=== PATIENT | male | born 1990 | race Caucasian/White ===

== ENCOUNTER → 2021-11-14 | Outpatient (CLI) | payer SELFPAY ==
[~2021-11-14] MED LIST: CEPHALEXIN500 M1 PO
== END ==
LOC: COL.RAD 11:42
DX: M54.9 Dorsalgia, unspecified (principal)

== ENCOUNTER → 2021-12-26 | Outpatient (CLI) | payer SELFPAY | LOC: COL.RAD 08:03 | DX: M54.9 Dorsalgia, unspecified (principal) | CPT/HCPCS: Q9967 ==